=== PATIENT | male | born 1995 | race Caucasian/White ===

== ENCOUNTER 2023-08-06 16:00 | Emergency (ER) | payer SELFPAY ==
[2023-08-06 16:04] VITALS: BP 150/65; PULSE 60; RESP 18; TEMP 36.5; O2SAT 97; BMI 38.7
--- NOTE | 2023-08-06 16:18 | ED.GENADUL1 ---
HPI - General Adult General Chief complaint: Upper Respiratory Infection Stated complaint: Sore Throat Time Seen by Provider: 08/06/23 16:09 Source: patient Mode of arrival: walk-in Limitations: no limitations History of Present Illness HPI narrative: Patient is a 27-year-old male who presents to the emergency department because he states he was brushing his teeth earlier today intact and saw bright red blood in his emesis. He states he came to the emergency department out of curiosity because he is concerned that he may be internally bleeding. He has no other focal medical complaints. He has had no fevers, persistent vomiting or diarrhea. No cough or congestion. No medications taken prior to arrival. Related Data Allergies Allergy/AdvReac Type Severity Reaction Status Date / Time No Known Drug Allergies Allergy Verified 08/06/23 16:04 Review of Systems ROS Constitutional Denies: fever or chills Ears, nose, mouth, and throat Denies: nasal congestion Respiratory Denies: shortness of breath or cough Gastrointestinal Denies: nausea or vomiting Integumentary/Breast Denies: rash Neurological Denies: headache Hematologic/Lymphatic Denies: easy bruising PFSH PFSH Social History Smoking status: Current every day smoker Exam Narrative Exam Narrative: Gen.: Awake, alert, in no distress Head: Normocephalic, atraumatic ENT: Moist mucous membranes, minimal erythema and irritation noted in the posterior pharynx. No tonsillar edema or exudate. Uvula midline. No trismus or drooling. Clear speech. Respiratory: No respiratory distress, lungs clear bilaterally Cardio: Regular rate and rhythm Extremities: Moves extremities equally Psych: Normal mood and affect Neuro: No focal neuro deficit Skin: Warm, dry, intact Constitutional Vital Signs, click to edit/add: Last Vital Signs Temp 97.7 F 08/06/23 16:04 Pulse 60 08/06/23 16:04 Resp 18 08/06/23 16:04 BP 150/65 H 08/06/23 16:04 Pulse Ox 97 08/06/23 16:04 O2 Del Method Room Air 08/06/23 16:04 Course Vital Signs Vital signs: Vital Signs Temperature 97.7 F 08/06/23 16:04 Pulse Rate 60 08/06/23 16:04 Respiratory Rate 18 08/06/23 16:04 Blood Pressure 150/65 H 08/06/23 16:04 Pulse Oximetry 97 08/06/23 16:04 Oxygen Delivery Method Room Air 08/06/23 16:04 Temperature 97.7 F 08/06/23 16:04 Pulse Rate 60 08/06/23 16:04 Respiratory Rate 18 08/06/23 16:04 Blood Pressure 150/65 H 08/06/23 16:04 Pulse Oximetry 97 08/06/23 16:04 Oxygen Delivery Method Room Air 08/06/23 16:04 Medical Decision Making MDM Narrative Medical decision making narrative: Strep screen is negative, patient appears well-hydrated and nontoxic with stable vital signs. He has no active hematemesis in the Emergency Room, no persistent vomiting. No difficulty breathing or swallowing. Patient was given education and reassurance, follow-up with PCP and return to the Emergency Room if symptoms change or worsen. Hemodynamically stable at discharge. Medical Records Medical records reviewed: Yes I reviewed the patient's medical records Lab Data Lab results reviewed: Yes I reviewed the patient's lab results Labs: Lab Results 08/06/23 Range/Units 16:11 Streptococcus Screen Negative Discharge Plan Discharge Chief Complaint: Upper Respiratory Infection Clinical Impression: Hematemesis of unknown cause Patient Disposition: Home, Self-Care Time of Disposition Decision: 16:46 Condition: Good Instructions: Hematemesis (ED) Stand Alone Forms: Portal Instructions Referrals: Physician,Non-Staff, MD [Primary Care Provider] - 1 week Discharge Date/Time: 08/06/23 16:55
[2023-08-06 16:37] LABS: Internal Control Within Normal Limits; Strep A Antigen Screen Negative
== END 2023-08-06 16:55 | disposition home or self-care (01) ==
PROVIDERS: Physician Assistant; Emergency Provider Emergency Medicine
DX: K92.0 Hematemesis (principal); F17.210 Nicotine dependence, cigarettes, uncomplicated
CPT/HCPCS: 87070; 87880; 99283

== ENCOUNTER 2023-09-12 11:32 | Emergency (ER) | payer SELFPAY ==
[2023-09-12 11:37] VITALS: BP 141/63; PULSE 80; RESP 16; TEMP 37.1; O2SAT 98; BMI 36.8
--- NOTE | 2023-09-12 12:06 | ED.WOUNDLAC1 ---
HPI - Wound/Laceration General Chief Complaint: Wound/Laceration Stated Complaint: LACERATION TO RIGHT HAND Time Seen by Provider: 09/12/23 11:40 Source: patient Mode of arrival: walk-in Limitations: no limitations History of Present Illness HPI narrative: The patient was opening a pocket knife and he accidentally shut it against the outside of the right 5th finger, cutting the skin at the union of the distal and mid 5th phalanx. He initially tried to apply topical glue to the area but once it dried and he started using the right hand, the bending of the finger caused the adhesive to open up and he started bleeding again. His tetanus is up to date. Related Data Previous Rx's Medication Instructions Recorded cephalexin 500 mg capsule 500 mg PO QID 7 days #28 caps 09/12/23 Allergies Allergy/AdvReac Type Severity Reaction Status Date / Time No Known Drug Allergies Allergy Verified 08/06/23 16:04 [facility] Medical History (Updated 09/12/23 @ 12:14 by Asael Mcgregor) No active medical problems Social History Smoking status: Current every day smoker Exam Narrative Exam Narrative: Nurses notes and vital signs reviewed and patient is not hypoxic. afebrile General: Well-appearing and in no apparent distress. Skin: Warm, dry, no pallor noted. Cardiovascular: normal peripheral perfusion. Respiratory: No accessory muscle use or respiratory distress. Musculoskeletal: 5mm shallow linear laceration to the ulnar aspect of the right 5th finger along the union of the distal and mid phalange. All fingers right hand with normal ROM, no upper extremity edema/swelling Neurological: A&O x4. No cranial nerve dysfunction observed. No truncal ataxia. Moves all extremities. Sensation intact. Psychiatric: Cooperative and interactive. Normal mood and affect. Constitutional Vital Signs, click to edit/add: Last Vital Signs Temp 98.7 F 09/12/23 11:37 Pulse 80 09/12/23 11:37 Resp 16 09/12/23 11:37 BP 141/63 09/12/23 11:37 Pulse Ox 98 09/12/23 11:37 Course Vital Signs Vital signs: Vital Signs Temperature 98.7 F 09/12/23 11:37 Pulse Rate 80 09/12/23 11:37 Respiratory Rate 16 09/12/23 11:37 Blood Pressure 141/63 09/12/23 11:37 Pulse Oximetry 98 09/12/23 11:37 Temperature 98.7 F 09/12/23 11:37 Pulse Rate 80 09/12/23 11:37 Respiratory Rate 16 09/12/23 11:37 Blood Pressure 141/63 09/12/23 11:37 Pulse Oximetry 98 09/12/23 11:37 MDM - Wound/Laceration MDM Narrative Medical decision making narrative: Wound is not vigorously bleeding and is shallow. I applied wound adhesive to the area and once it was dry, the ED nurse applied a dry sterile dressing and then applied an alumifoam splint to the palmar surface of the right 5th finger to prevent movement. He will remove that and the dressing in 2 days and then apply a bandage. Discharge Plan Discharge Chief Complaint: Wound/Laceration Clinical Impression: Laceration Patient Disposition: Home, Self-Care Time of Disposition Decision: 12:14 Prescriptions / Home Meds: New cephalexin 500 mg capsule 500 mg PO QID 7 Days Qty: 28 0RF Instructions: Finger Laceration (ED) Stand Alone Forms: Portal Instructions Referrals: Physician,Non-Staff, MD [Primary Care Provider] - 1 week
== END 2023-09-12 12:32 | disposition home or self-care (01) ==
PROVIDERS: Emergency Provider Emergency Medicine
DX: S61.216A Laceration without foreign body of right little finger without damage to nail, initial encounter (principal); W26.0XXA Contact with knife, initial encounter; F17.210 Nicotine dependence, cigarettes, uncomplicated
CPT/HCPCS: 12001; 99283

== ENCOUNTER 2024-04-16 01:17 | Emergency (ER) | payer SELFPAY ==
[2024-04-16 01:21] VITALS: BP 168/99; PULSE 85; TEMP 37.1; O2SAT 98; BMI 37.9
--- NOTE | 2024-04-16 01:36 | ECG_ITS ---
[facility] Test Date: 2024-04-16 Pat Name: FLAVIO MURRAY Department: Room: - Gender: Male Transport Manager: : 1995 Requested By: [id number] Order Number: [id number] Reading MD: SANIYA VO Measurements Intervals [place] Rate: 66 P: 30 OK: 122 QRS: 44 QRSD: 86 T: 33 QT: 372 QTc: 386 Interpretive Statements 1100 Sinus rhythm 9110 normal ECG Compared to ECG 12/31/2022 12:28:54 T-wave abnormality no longer present Electronically Signed On 04-16-2024 6:56:28 EDT by SANIYA VO
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
[2024-04-16 01:41] LABS: Basophils Absolute Auto 0.1 10^3/uL (0.0-0.1); Basophils Percent Auto 0.8 % (0.2-2.0); Eosinophils Absolute Auto 0.1 10^3/uL (0.0-0.7); Eosinophils Percent Auto 1.8 % (0.9-7.0); Hematocrit 42.9 % (42.0-54.0); Hemoglobin 15.2 g/dL (14.0-18.0); Immature Granulocytes Abs Auto 0.03 10^3/uL (0.00-0.03); Immature Granulocytes Pct Auto 0.5 % (0.0-0.5); Lymphocytes Absolute Auto 1.4 10^3/uL (1.2-3.8); Lymphocytes Percent Auto 21.5 % (20.5-60.0); Mean Corpuscular HGB Conc 35.4 g/dL (29.9-35.2); Mean Corpuscular Hemoglobin 31.3 pg (25.9-34.0); Mean Corpuscular Volume 88.3 fL (80.0-94.0); Mean Platelet Volume 11.2 fL (9.5-13.5); Monocytes Absolute Auto 0.3 10^3/uL (0.3-0.8); Monocytes Percent Auto 4.8 % (1.7-12.0); Neutrophils Absolute Auto 4.7 10^3/uL (1.4-6.5); Neutrophils Percent Auto 70.6 % (43.0-75.0); Platelet Count 291 10^3/uL (150-450); Red Blood Count 4.86 10^6/uL (4.70-6.10); White Blood Count 6.6 10^3/uL (4.0-11.0)
[2024-04-16] MEDS: 0.9 % SODIUM CHLORIDE 1,000 ML 1000 ML IV (01:47)
[2024-04-16] MEDS: ONDANSETRON PF 4 MG/2 ML VIAL IV (01:48)
[2024-04-16 01:50] LABS: Anion Gap 12.3; BUN Creatinine Ratio 19.8; Carbon Dioxide 26.7 mmol/L (21.0-32.0); Chloride 101 mmol/L (98-107); Estimated GFR (African America >60 (>=60); Estimated GFR (Non-African Ame >60 (>=60); Glucose 100 mg/dL (74-106); Sodium 136 mmol/L (136-145)
--- OUTSIDE RECORDS SUMMARY | 2024-04-16 02:00 | XMS_ITS | CCD ---
Author Organization [facility] Care Team Providers Care Educational Administration Teacher Name Role Phone MATHEUS, DR ARACELI Le Admitting Unavailabl e REINECK, DR ARACELI Le Attending Unavailabl e REQUEST, DR MINAYA LISTED Primary Care Unavaila ble MATHEUS, DR ARACELI Le Consulting Unavailabl e RASPING DE LA GARZA Consulting Unavailable Results Test Name Value Interpretation Reference Range Facil ity CBC AUTO DIFFon 12-31-2022 BASO # 0.0 103/ul Normal 0.0-0.1 [facility] Comment on above: Performed By: #### C BC #### [facility] [address] [address] [address] Annemarie Solorio Basophils/100 WBC (Bld) 0.4 % Normal 0.2-2.0 [facility] Comment on above: Performed By: #### C BC #### [facility] [address] [address] [address] Annemarie Solorio EO # 0.1 103/ul Normal 0.0-0.7 [facility] Comment on above: Performed By: #### C BC #### [facility] [address] [address] [address] Annemarie Solorio Eosinophils/100 WBC (Bld) 1.0 % Normal 0.9-7.0 [facility] Comment on above: Performed By: #### C BC #### [facility] [address] [address] [address] Annemarie Solorio Erythrocyte distribution width (RBC) [Ratio] 12.2 % Normal 11.0-15.0 [facility] Comment on above: Performed By: #### C BC #### [facility] [address] [place] [address] Dr. Annemarie Solorio Hematocrit (Bld) [Volume fraction] 40.9 % Critically low 42.0-54.0 [facility] Comment on above: Performed By: #### C BC #### [facility] [address] [address] [address] Annemarie Solorio Hemoglobin (Bld) [Mass/Vol] 14.5 g/dL Normal 14.0-18.0 [facility] Comment on above: Performed By: #### C BC #### [facility] [address] [place] [address] Dr. Annemarie Solorio IG # 0.02 10e3/ul Normal 0.00-0.03 [facility] Comment on above: Performed By: #### C BC #### [facility] [address] [place] [address] Dr. Annemarie Solorio IG % 0.3 % Normal 0.0-0.5 [facility] Comment on above: Performed By: #### C BC #### [facility] [address] [place] [address] Dr. Annemarie Solorio LYMPH # 1.0 103/ul Critically low 1.2-3.8 [facility] Comment on above: Performed By: #### C BC #### [facility] [address] [place] [address] Dr. Annemarie Solorio Lymphocytes/100 WBC (Bld) 14.4 % Critically low 20.5-60.0 [facility] Comment on above: Performed By: #### C BC #### [facility] [address] [place] [address] Dr. Annemarie Solorio MANUAL DIFF REQ NO Normal [facility] Comment on above: Performed By: #### C BC #### [facility] [address] [place] [address] Dr. Annemarie Solorio MCH (RBC) [Entitic mass] 30.1 pg Normal 25.9-34.0 [facility] Comment on above: Performed By: #### C BC #### [facility] [address] [place] [address] Dr. Annemarie Solorio MCHC (RBC) [Mass/Vol] 35.5 g/dL Critically high 29.9-35.2 [facility] Comment on above: Performed By: #### C BC #### [facility] [address] [address] [address] Annemarie Solorio MCV (RBC) [Entitic vol] 84.9 fL Normal 80.0-94.0 [facility] Comment on above: Performed By: #### C BC #### [facility] [address] [address] [address] Annemarie Solorio MONO # 0.3 103/ul Normal 0.3-0.8 [facility] Comment on above: Performed By: #### C BC #### [facility] [address] [address] [address] Annemarie Solorio Monocytes/100 WBC (Bld) 4.8 % Normal 1.7-12.0 [facility] Comment on above: Performed By: #### C BC #### [facility] [address] [address] [address] Annemarie Solorio NEUT # 5.6 103/ul Normal 1.4-6.5 [facility] Comment on above: Performed By: #### C BC #### [facility] [address] [address] [address] Annemarie Solorio Neutrophils/100 WBC (Bld) 79.1 % Critically high 43.0-75.0 [facility] Comment on above: Performed By: #### C BC #### [facility] [address] [address] [address] Annemarie Solorio Platelet mean volume (Bld) [Entitic vol] 11.2 fL Normal 9.5-13.5 [facility] Comment on above: Performed By: #### C BC #### [facility] [address] [address] [address] Annemarie Solorio PLT 267 103/ul Normal 150-450 [facility] Comment on above: Performed By: #### C BC #### [facility] [address] [address] [address] Annemarie Solorio RBC 4.82 106/ul Normal 4.70-6.10 [facility] Comment on above: Performed By: #### C BC #### [facility] [address] [address] [address] Annemarie Solorio WBC 7.1 103/ul Normal 4.0-11.0 [facility] Comment on above: Performed By: #### C BC #### [facility] [address] [address] [address] Annemarie Solorio POINT OF CARE GLUCOSEon 12-16 Glucose [Mass/Vol] 123 mg/dL Critically high 74-[address] [facility] Comment on above: Performed By: #### P OCGLUC #### [facility] [address] [address] [address] Annemarie Solorio PROF CHEM 8 (BAS METB)on Anion gap [Moles/Vol] 15.7 mmol/L Normal [facility] Comment on above: Performed By: #### H STROPN, BMP #### [facility] [address] [place] [address] Dr. Annemarie Solorio Calcium [Mass/Vol] 9.2 mg/dL Normal 8.5-10.1 [facility] Comment on above: Performed By: #### H STROPN, BMP #### [facility] [address] [place] [address] Dr. Annemarie Solorio Chloride [Moles/Vol] 107 mmol/L Normal 98-107 [facility] Comment on above: Performed By: #### H STROPN, BMP #### [facility] [address] [place] [address] Dr. Annemarie Solorio CO2 [Moles/Vol] 24.3 mmol/L Normal 21.0-32.0 [facility] Comment on above: Performed By: #### H STROPN, BMP #### [facility] [address] [place] [address] Dr. Annemarie Solorio Creatinine [Mass/Vol] 0.98 mg/dL Normal 0.70-1.30 [facility] Comment on above: Performed By: #### H STROPN, BMP #### [facility] [address] [place] [address] Dr. Annemarie Solorio EGFR-AF [place] >60 Normal >=60 [facility] Comment on above: Performed By: #### H STROPN, BMP #### [facility] [address] [address] [address] Annemarie Solorio EGFR-NON AF [place] >60 Normal >=60 [facility] Comment on above: Performed By: #### H STROPN, BMP #### [facility] [address] [address] [address] Annemarie Solorio Glucose [Mass/Vol] 108 mg/dL Critically high 74-106 [facility] Comment on above: Performed By: #### H STROPN, BMP #### [facility] [address] [address] [address] Annemarie Solorio Potassium [Moles/Vol] 4.0 mmol/L Normal 3.5-5.1 [facility] Comment on above: Performed By: #### H STROPN, BMP #### [facility] [address] [place] [address] Dr. Annemarie Solorio Sodium [Moles/Vol] 143 mmol/L Normal 136-145 [facility] Comment on above: Performed By: #### H STROPN, BMP #### [facility] [address] [address] [address] Annemarie Solorio Urea nitrogen [Mass/Vol] 18.0 mg/dL Normal 7.0-18.0 [facility] Comment on above: Performed By: #### H STROPN, BMP #### [facility] [address] [place] [address] Dr. Annemarie Solorio Urea nitrogen/Creatinine [Mass ratio] 18.4 mg/mg Normal [facility] Comment on above: Performed By: #### H STROPN, BMP #### [facility] [address] [place] [address] Dr. Annemarie Solorio TROPONIN, HIGH SENSITIVITYon 12-31-2022 HSTROP 6.5 pg/mL Normal 4.0-76.1 [facility] Comment on above: Result Comment: CUT- OFF POINTS HAVE BEEN ESTABLISHED BASED ON THE FOURTH UNIVERSAL DEFINITIONS OF MYOCARDIAL INFARCTION. THE UPPER REFERENCE LIMIT (URL) OF TROPONIN, DEFINED THE 99TH PERCENTILE OF cTnI DISTRIBUTION IN A REFERENCE POPULATION, HAS BEEN CONFIRMED THE DECISION THRESHOLD FOR CA DIAGNOSIS. Performed By: #### H STRO, [facility] #### [facility] [id number] Annemarie Solorio XR CHEST 1 Von 12-31-2022 XR CHEST 1 V EXAM: XR CHEST 1 V HISTORY: CHEST PAIN, UNSPECIFIED COMPARISON: None. TECHNIQUE: Chest X-ray AP, 1 view FINDINGS: Support devices: None. Lungs/pleura: No consolidation, effusion, or pneumothorax. Heart and mediastinum: Normal contours. Bones: No acute abnormality identified. Impression: No radiographic evidence of acute cardiopulmonary process. Electronically authenticated by: PING GREGORY Date: 2022-12-31 14:13 Normal [facility] Encounters Encounter Date Encounter Type Care Provider Facility Start: 12-31-2022 End: 12-31-[address] ARACELI JARVIS Facility:[facility] Payers Date Payer Category Payer Unknown [id number] 1960 Self-pay [id number] Summary Purpose Family History No Family History Records Found Advance Directives No Advanced Directives Records Found Additional Source Comments (unrecognized sect ion and content) No Status Records Found INFORMATION SOURCE (unrecogn ized section and content) DATE CREATED AUTHOR 01/01/[address] [facility] FOR RECORDS PERTAINING TO PATIENTS WHO ARE OR HAVE BEEN ENROLLED IN A CHEMICAL DEPENDENCY/SUBSTANCEABUSE PROGRAM, SOME INFORMATION MAY BE OMITTED. This clinical summary was aggregated from multiple sources. Caution should be exercised in using it in the provision of clinical care. This summary normalizes information from multiple sources, and as a consequence, information in this document may materially change the coding, format and clinical context of patient data. In addition, data may be omitted in some cases. CLINICAL DECISIONS SHOULD BE BASED ON THE PRIMARY CLINICAL RECORDS. [employer] provides no warranty or guarantee of the accuracy or completeness of information in this document.
== END 2024-04-16 02:46 | disposition home or self-care (01) ==
PROVIDERS: Emergency Provider Emergency Medicine
DX: R42 Dizziness and giddiness (principal); F17.210 Nicotine dependence, cigarettes, uncomplicated
CPT/HCPCS: 36415; 80048; 85025; 93005; 96361; 96374; 99284; J2405

== ENCOUNTER 2024-09-14 23:07 | Emergency (ER) | payer SELFPAY ==
--- OUTSIDE RECORDS SUMMARY | 2024-09-14 23:11 | XMS_ITS | CCD ---
Author Organization [facility] Care Team Providers Care Hide Sorter Name Role Phone MATHEUS, DR ARACELI Le Admitting Unavailabl e REINECK, DR ARACELI Le Attending Unavailabl e REQUEST, DR MINAYA LISTED Primary Care Unavaila ble MATHEUS, DR ARACELI Le Consulting Unavailabl e RASPING DE LA GARZA Consulting Unavailable Results Test Name Value Interpretation Reference Range Facil ity CBC AUTO DIFFon 12-31-2022 BASO # 0.0 103/ul Normal 0.0-0.1 [facility] Comment on above: Performed By: #### C BC #### [facility] [address] [address] [address] Annemarie Solorio Basophils/100 WBC (Bld) 0.4 % Normal 0.2-2.0 [facility] Comment on above: Performed By: #### C BC #### [facility] [address] [address] [address] Annemarie Solorio EO # 0.1 103/ul Normal 0.0-0.7 [facility] Comment on above: Performed By: #### C BC #### [facility] [address] [address] [address] Annemarie Solorio Eosinophils/100 WBC (Bld) 1.0 % Normal 0.9-7.0 [facility] Comment on above: Performed By: #### C BC #### [facility] [address] [address] [address] Annemarie Solorio Erythrocyte distribution width (RBC) [Ratio] 12.2 % Normal 11.0-15.0 [facility] Comment on above: Performed By: #### C BC #### [facility] [address] [place] [address] Dr. Annemarie Solorio Hematocrit (Bld) [Volume fraction] 40.9 % Critically low 42.0-54.0 [facility] Comment on above: Performed By: #### C BC #### [facility] [address] [address] [address] Annemarie Solorio Hemoglobin (Bld) [Mass/Vol] 14.5 g/dL Normal 14.0-18.0 [facility] Comment on above: Performed By: #### C BC #### [facility] [address] [place] [address] Dr. Annemarie Solorio IG # 0.02 10e3/ul Normal 0.00-0.03 [facility] Comment on above: Performed By: #### C BC #### [facility] [address] [place] [address] Dr. Annemarie Solorio IG % 0.3 % Normal 0.0-0.5 [facility] Comment on above: Performed By: #### C BC #### [facility] [address] [place] [address] Dr. Annemarie Solorio LYMPH # 1.0 103/ul Critically low 1.2-3.8 [facility] Comment on above: Performed By: #### C BC #### [facility] [address] [place] [address] Dr. Annemarie Solorio Lymphocytes/100 WBC (Bld) 14.4 % Critically low 20.5-60.0 [facility] Comment on above: Performed By: #### C BC #### [facility] [address] [place] [address] Dr. Annemarie Solorio MANUAL DIFF REQ NO Normal [facility] Comment on above: Performed By: #### C BC #### [facility] [address] [place] [address] Dr. Annemarie Solorio MCH (RBC) [Entitic mass] 30.1 pg Normal 25.9-34.0 [facility] Comment on above: Performed By: #### C BC #### [facility] [address] [place] [address] Dr. Annemarie Solorio MCHC (RBC) [Mass/Vol] 35.5 g/dL Critically high 29.9-35.2 [facility] Comment on above: Performed By: #### C BC #### [facility] [address] [address] [address] Annemarie Solorio MCV (RBC) [Entitic vol] 84.9 fL Normal 80.0-94.0 [facility] Comment on above: Performed By: #### C BC #### [facility] [address] [address] [address] Annemarie Soloiro MONO # 0.3 103/ul Normal 0.3-0.8 [facility] Comment on above: Performed By: #### C BC #### [facility] [address] [address] [address] Annemarie Solorio Monocytes/100 WBC (Bld) 4.8 % Normal 1.7-12.0 [facility] Comment on above: Performed By: #### C BC #### [facility] [address] [address] [address] Annemarie Solorio NEUT # 5.6 103/ul Normal 1.4-6.5 [facility] Comment on above: Performed By: #### C BC #### [facility] [address] [address] [address] Annemarie Solorio Neutrophils/100 WBC (Bld) 79.1 % Critically high 43.0-75.0 [facility] Comment on above: Performed By: #### C BC #### [facility] [address] [address] [address] Annemarie Solorio Platelet mean volume (Bld) [Entitic vol] 11.2 fL Normal 9.5-13.5 [facility] Comment on above: Performed By: #### C BC #### [facility] [address] [address] [address] Annemarie Solorio PLT 267 103/ul Normal 150-450 [facility] Comment on above: Performed By: #### C BC #### [facility] [address] [address] [address] Annemarie Solorio RBC 4.82 106/ul Normal 4.70-6.10 [facility] Comment on above: Performed By: #### C BC #### [facility] [address] [address] [address] Annemarie Solorio WBC 7.1 103/ul Normal 4.0-11.0 [facility] Comment on above: Performed By: #### C BC #### [facility] [address] [address] [address] Annemarie Solorio POINT OF CARE GLUCOSEon 12-16 Glucose [Mass/Vol] 123 mg/dL Critically high 74-106 T [facility] Comment on above: Performed By: #### P OCGLUC #### [facility] [address] [address] [address] Annemarie Solorio PROF CHEM 8 (BAS METB)on Anion gap [Moles/Vol] 15.7 mmol/L Normal [facility] Comment on above: Performed By: #### H STROPN, BMP #### [facility] [address] [place] [address] Dr. Annemarie Solorio Calcium [Mass/Vol] 9.2 mg/dL Normal 8.5-10.1 [facility] Comment on above: Performed By: #### H STROPN, BMP #### [facility] [address] [place] [address] Dr. Annemarie Solorio Chloride [Moles/Vol] 107 mmol/L Normal 98-107 [facility] Comment on above: Performed By: #### H STROPN, BMP #### [facility] [address] [place] [address] Dr. Annemarie Solorio CO2 [Moles/Vol] 24.3 mmol/L Normal 21.0-32.0 [facility] Comment on above: Performed By: #### H STROPN, BMP #### [facility] [address] [place] [address] Dr. Annemarie Solorio Creatinine [Mass/Vol] 0.98 mg/dL Normal 0.70-1.30 [facility] Comment on above: Performed By: #### H STROPN, BMP #### [facility] [address] [place] [address] Dr. Annemarie Solorio EGFR-AF RWANDAN >60 Normal >=60 [facility] Comment on above: Performed By: #### H STROPN, BMP #### [facility] [address] [address] [address] Annemarie Solorio EGFR-NON AF RWANDAN >60 Normal >=60 [facility] Comment on above: Performed By: #### H STROPN, BMP #### [facility] [address] [address] [address] Annemarie Solorio Glucose [Mass/Vol] 108 mg/dL Critically high 74-106 [facility] Comment on above: Performed By: #### H STROPN, BMP #### [facility] [address] [address] [address] Annemarie Solorio Potassium [Moles/Vol] 4.0 mmol/L Normal 3.5-5.1 [facility] Comment on above: Performed By: #### H STROPN, BMP #### [facility] [address] [place] [address] Dr. Annemarie Solorio Sodium [Moles/Vol] 143 mmol/L Normal 136-145 [facility] Comment on above: Performed By: #### H STROPN, BMP #### [facility] [address] [address] [address] Annemarie Solorio Urea nitrogen [Mass/Vol] 18.0 mg/dL Normal 7.0-18.0 [facility] Comment on above: Performed By: #### H STROPN, BMP #### [facility] [address] [place] [address] Dr. Annemarie Solorio Urea nitrogen/Creatinine [Mass ratio] 18.4 mg/mg Normal [facility] Comment on above: Performed By: #### H STROPN, BMP #### [facility] [address] [place] [address] Dr. Annemarie Solorio TROPONIN, HIGH SENSITIVITYon 12-31-2022 HSTROP 6.5 pg/mL Normal 4.0-76.1 [facility] Comment on above: Result Comment: CUT- OFF POINTS HAVE BEEN ESTABLISHED BASED ON THE FOURTH UNIVERSAL DEFINITIONS OF MYOCARDIAL INFARCTION. THE UPPER REFERENCE LIMIT (URL) OF TROPONIN, DEFINED THE 99TH PERCENTILE OF cTnI DISTRIBUTION IN A REFERENCE POPULATION, HAS BEEN CONFIRMED THE DECISION THRESHOLD FOR NM DIAGNOSIS. Performed By: #### H STRO, [place] #### [facility] [id number] Annemarie Solorio XR CHEST 1 Von [...] by: PING GREGORY Date: 2022-12-31 14:13 Normal [facility] Encounters Encounter Date Encounter Type Care Provider Facility Start: 12-31-2022 End: 12-31-[address] ARACELI JARVIS Facility:[facility] Payers Date Payer Category Payer Unknown [id number] 1960 Self-pay [id number] Summary Purpose Family History No Family History Records Found Advance Directives No Advanced Directives Records Found Additional Source Comments (unrecognized sect ion and content) No Status Records Found INFORMATION SOURCE (unrecogn ized section and content) DATE CREATED AUTHOR 01/01/2023 [facility] FOR RECORDS PERTAINING TO PATIENTS WHO ARE [...] BE BASED ON THE PRIMARY CLINICAL RECORDS. [employer] provides no warranty or guarantee of the accuracy or completeness of information in this document.
[2024-09-14 23:22] VITALS: BP 133/62; PULSE 102; TEMP 37; O2SAT 97; BMI 37.9
--- NOTE | 2024-09-14 23:34 | ED_ITS ---
HPI - Nausea/Vomiting/Diarrhea General Chief complaint: Nausea/Vomiting/Diarrhea Stated complaint: VOMITING Time Seen by Provider: 09/14/24 23:17 Source: patient Mode of arrival: walk-in Limitations: no limitations History of Present Illness HPI Narrative: 28-year-old male presents for nausea vomiting and diarrhea. It started about 5:00 this morning. He also complains of allover body pain from his rheumatoid arthritis which seems to only flareup when he is sick. He has lived in this area for a year and a half, moved here from [facility] and he does not have a family doctor. He has not had fever or hematemesis or hematochezia. Related Data Previous Rx's ?Medication ?Instructions ?Recorded acetaminophen 300 mg-codeine 30 mg 1 tab PO Q6H PRN pain 3 days #10 09/15/24 tablet tabs ondansetron 4 mg disintegrating 4 mg PO Q6H PRN nausea and 09/15/24 tablet vomiting #20 tabs prednisone 10 mg tablet See Rx Instructions .Route 09/15/24 .COMPLEX #30 tabs Allergies Allergy/AdvReac Type Severity Reaction Status Date / Time No Known Drug Allergies Allergy Verified 09/14/24 23:27 Review of Systems ROS Narrative A ten point review of systems is negative except as noted above. [facility] Medical History (Updated 09/15/24 @ 01:33 by Anthony Steiner MD) No active medical problems Social History Smoking status: Current every day smoker Little interest or pleasure in doing things: not at all Feeling down, depressed, or hopeless: not at all Exam Narrative Exam Narrative: Nurses note and vital signs reviewed and patient is not hypoxic. General: The patient appears in no apparent distress. Skin: Warm, dry, no pallor noted. There is no rash noted. Head: Normocephalic, atraumatic Eye: Normal conjunctiva, no drainage Ears, Nose, Mouth, and Throat: oral mucosa is moist. Nares patent. Cardiovascular: Regular Rate and Rhythm Respiratory: Patient is in no distress, no accessory muscle use, lungs are clear to auscultation, no wheezing, rales or rhonchi Back: non-tender GI: Soft and nontender and nondistended Musculoskeletal: The patient has no evidence of calf tenderness, no pitting edema, symmetrical pulses noted bilaterally Neurological: A&O, normal speech Psychiatric: Cooperative Constitutional Vital Signs, click to edit/add: Last Vital Signs Temp 98.6 F 09/14/24 23:22 Pulse 102 H 09/14/24 23:22 Resp 16 09/14/24 23:22 BP 133/62 09/14/24 23:22 Pulse Ox 97 09/14/24 23:22 O2 Del Method Room Air 09/14/24 23:22 Course Vital Signs Vital signs: Vital Signs Temperature 98.6 F 09/14/24 23:22 Pulse Rate 102 H 09/14/24 23:22 Respiratory Rate 16 09/14/24 23:22 Blood Pressure 133/62 09/14/24 23:22 Pulse Oximetry 97 09/14/24 23:22 Oxygen Delivery Method Room Air 09/14/24 23:22 Temperature 98.6 F 09/14/24 23:22 Pulse Rate 102 H 09/14/24 23:22 Respiratory Rate 16 09/14/24 23:22 Blood Pressure 133/62 09/14/24 23:22 Pulse Oximetry 97 09/14/24 23:22 Oxygen Delivery Method Room Air 09/14/24 23:22 MDM - Nausea/Vomiting/Diarrhea MDM Narrative Medical decision making narrative: The patient is feeling improved with the medications that were given and he is discharged home with a prescription for prednisone and Zofran and Tylenol 3, 10 tablets. He was also given a list of family physicians. Treatment diagnosis and follow-up were discussed with the patient. Differential Diagnosis Differential diagnosis: Likely food poisoning, gastroenteritis and dehydration Lab Data Attestation: I reviewed the patient's lab results. Labs: Lab Results 09/14/24 Range/Units 23:49 WBC 9.2 (4.0-11.0) 10^3/uL RBC 4.57 L (4.70-6.10) 10^6/uL Hgb 14.0 (14.0-18.0) g/dL Hct 40.6 L (42.0-54.0) % MCV 88.8 (80.0-94.0) fL MCH 30.6 (25.9-34.0) pg MCHC 34.5 (29.9-35.2) g/dL RDW 12.0 (11.0-15.0) % Plt Count 212 (150-450) 10^3/uL MPV 11.3 (9.5-13.5) fL Neut % (Auto) 82.6 H (43.0-75.0) % Lymph % (Auto) 10.1 L (20.5-60.0) % [place] % (Auto) 5.0 (1.7-12.0) % Eos % (Auto) 1.7 (0.9-7.0) % Baso % (Auto) 0.3 (0.2-2.0) % Neut # (Auto) 7.6 H (1.4-6.5) 10^3/uL Lymph # (Auto) 0.9 L (1.2-3.8) 10^3/uL [place] # (Auto) 0.5 (0.3-0.8) 10^3/uL Eos # (Auto) 0.2 (0.0-0.7) 10^3/uL Baso # (Auto) 0.0 (0.0-0.1) 10^3/uL Abs Immat Gran (auto) 0.03 (0.00-0.03) 10^3/uL Imm/Tot Granulo (auto) 0.3 (0.0-0.5) % Sodium 139 (136-145) mmol/L Potassium 3.7 (3.5-5.1) mmol/L Chloride 104 (98-107) mmol/L Carbon Dioxide 27.1 (21.0-32.0) mmol/L Anion Gap 11.6 BUN 17.0 (7.0-18.0) mg/dL Creatinine 1.05 (0.70-1.30) mg/dL Est GFR ( Amer) >60 (>=60 mL/min/1.73m^2) Est GFR (Non-Af Amer) >60 (>=60 mL/min/1.73m^2) BUN/Creatinine Ratio 16.2 Glucose 111 H (74-106) mg/dL Calcium 8.4 L (8.5-10.1) mg/dL Discharge Plan Discharge Chief Complaint: Nausea/Vomiting/Diarrhea Clinical Impression: Nausea, vomiting and diarrhea, Joint pain Patient Disposition: Home, Self-Care Time of Disposition Decision: 01:33 Condition: Good Mode of Transportation: Private Vehicle Prescriptions / Home Meds: New prednisone 10 mg tablet See Rx Instructions .ROUTE .COMPLEX Qty: 30 0RF Rx Instructions: 4 by mouth daily for three days then 3 by mouth daily for three days then 2 by mouth daily for three days then 1 by mouth daily for three days acetaminophen-codeine 300-30 mg tablet 1 tab PO Q6H PRN (Reason: pain) 3 Days Qty: 10 0RF ondansetron 4 mg tablet,disintegrating 4 mg PO Q6H PRN (Reason: nausea and vomiting) Qty: 20 0RF Print Language: Indian Instructions: Acute Nausea and Vomiting (ED) Additional Instructions: See list of family physicians Referrals: Physician,Non-Staff, MD [Primary Care Provider] - 1 week
[2024-09-14 23:56] LABS: Basophils Percent Auto 0.3 % (0.2-2.0); Eosinophils Absolute Auto 0.2 10^3/uL (0.0-0.7); Eosinophils Percent Auto 1.7 % (0.9-7.0); Hematocrit 40.6 % (42.0-54.0); Immature Granulocytes Abs Auto 0.03 10^3/uL (0.00-0.03); Immature Granulocytes Pct Auto 0.3 % (0.0-0.5); Lymphocytes Absolute Auto 0.9 10^3/uL (1.2-3.8); Lymphocytes Percent Auto 10.1 % (20.5-60.0); Mean Corpuscular HGB Conc 34.5 g/dL (29.9-35.2); Mean Corpuscular Hemoglobin 30.6 pg (25.9-34.0); Mean Corpuscular Volume 88.8 fL (80.0-94.0); Mean Platelet Volume 11.3 fL (9.5-13.5); Monocytes Absolute Auto 0.5 10^3/uL (0.3-0.8); Neutrophils Absolute Auto 7.6 10^3/uL (1.4-6.5); Neutrophils Percent Auto 82.6 % (43.0-75.0); Platelet Count 212 10^3/uL (150-450); Red Blood Count 4.57 10^6/uL (4.70-6.10); White Blood Count 9.2 10^3/uL (4.0-11.0)
[2024-09-15] MEDS: ONDANSETRON PF 4 MG/2 ML VIAL IV (00:02)
[2024-09-15] MEDS: KETOROLAC TROMETHAMINE 30 MG/ML VIAL IVP (00:02)
[2024-09-15] MEDS: 0.9 % SODIUM CHLORIDE 1,000 ML 1000 ML IV (00:03)
[2024-09-15] MEDS: METHYLPREDNISOLONE SOD SUCC PF 125 MG/2 ML VIAL IVP (00:03)
[2024-09-15 00:05] LABS: Anion Gap 11.6; BUN Creatinine Ratio 16.2; Calcium 8.4 mg/dL (8.5-10.1); Carbon Dioxide 27.1 mmol/L (21.0-32.0); Chloride 104 mmol/L (98-107); Estimated GFR (African America >60 (>=60 mL/min/1.73m^2); Estimated GFR (Non-African Ame >60 (>=60 mL/min/1.73m^2); Glucose 111 mg/dL (74-106); Potassium 3.7 mmol/L (3.5-5.1); Sodium 139 mmol/L (136-145)
[2024-09-15] MEDS: MORPHINE SULFATE 4 MG/ML VIAL IV (01:26)
[2024-09-15 01:58] VITALS: BP 133/68; PULSE 78; TEMP 36.7; O2SAT 98
== END 2024-09-15 02:07 | disposition home or self-care (01) ==
PROVIDERS: Emergency Provider Emergency Medicine
DX: R11.2 Nausea with vomiting, unspecified (principal); R19.7 Diarrhea, unspecified; M06.9 Rheumatoid arthritis, unspecified; F17.200 Nicotine dependence, unspecified, uncomplicated
CPT/HCPCS: 36415; 80048; 85025; 96361; 96374; 96375; 99284; J1885; J2270; J2405; J2919

== ENCOUNTER 2024-09-15 02:54 | Emergency (ER) | payer SELFPAY ==
[2024-09-15 02:57] VITALS: BP 152/86; PULSE 78; TEMP 36.7; O2SAT 100; BMI 43.9
--- NOTE | 2024-09-15 02:57 | ECG_ITS ---
[facility] Test Date: 2024-09-15 Pat Name: FLAVIO MURRAY Department: Room: - Gender: Male Fisher Hand Line: : 1995 Requested By: NICHOLE CORTEZ Order Number: [id number] Reading MD: SANIYA VO Measurements Intervals [place] Rate: 76 P: 23 RI: 120 QRS: 49 QRSD: 94 T: 41 QT: 366 QTc: 397 Interpretive Statements 1100 Sinus rhythm 1102 Sinus arrhythmia 9110 normal ECG Compared to ECG 04/16/2024 01:52:04 No significant changes Electronically Signed On 09-16-2024 14:55:38 EST by SANIYA VO
--- NOTE | 2024-09-15 02:58 | XR_ITS ---
The [address] [address] Patient Name: FLAVIO MURRAY MRN: [id number] date: 1995 Sex: M Assigned Patient Location: ED.MAIN Current Patient Location: ED.MAIN Accession/Order Number: [id number] Exam Date: 09/15/2024 03:10 Report Date: 09/15/2024 03:46 At the request of: RADHA CAMEJO Procedure: XR chest 1V SINGLE VIEW CHEST: 09/15/2024 3:10 AM EST CLINICAL HISTORY:CP COMPARISONS: None. TECHNIQUE: Single frontal view of the chest, utilizing portable technique. Portable radiography should be considered a technically compromised study. Strongly consider dedicated PA and lateral chest radiographs, as clinically indicated. FINDINGS: LINES AND TUBES: Cardiac monitoring leads and wires overlie the patient. CARDIAC SILHOUETTE: Cardiac chambers are mildly enlarged. MEDIASTINAL AND HILAR CONTOUR: Within normal limits. PULMONARY PARENCHYMA AND PLEURA: No consolidation, edema, effusion, or pneumothorax. OSSEOUS STRUCTURES:Nothing significant. OTHER COMMENTS:None. XR/XR chest 1V IMPRESSION: Clear lungs. Mild cardiac enlargement versus accentuation from technique and body habitus. This report was generated with voice recognition software. Effort has been made to ensure accuracy of this report, however, occasional wording errors may persist. Please contact our office with any questions. Electronically authenticated by: FATOU FALCON Date: 09/15/2024 03:46
--- NOTE | 2024-09-15 03:08 | ED.GENADUL1 ---
HPI HPI - General Adult General Chief complaint: Anxiety Stated complaint: CHEST PAIN Time Seen by Provider: 09/15/24 02:57 Source: patient Mode of arrival: ambulance Limitations: no limitations History of Present Illness HPI narrative: 28-year-old male presents for chest pain. It is in the middle part of his chest. He was seen here earlier tonight for joint pain and nausea vomiting and diarrhea. When he got home about 10 minutes later his pain in his chest started. No trauma or fever. He has a history of anxiety. He does not complain of pain radiating and he does not complain to me of shortness of breath or back pain. Related Data Previous Rx's ?Medication ?Instructions ?Recorded acetaminophen 300 mg-codeine 30 mg 1 tab PO Q6H PRN pain 3 days #10 09/15/24 tablet tabs ondansetron 4 mg disintegrating 4 mg PO Q6H PRN nausea and 09/15/24 tablet vomiting #20 tabs prednisone 10 mg tablet See Rx Instructions .Route 09/15/24 .COMPLEX #30 tabs Allergies Allergy/AdvReac Type Severity Reaction Status Date / Time No Known Drug Allergies Allergy Verified 09/15/24 02:58 Opioid HPI Opioid Management Most Recent Opioid Data: Last Pain Scale 8 09/15/24 01:26 09/15/24 Review of Systems ROS Narrative A ten point review of systems is negative except as noted above. [facility] Medical History (Updated 09/15/24 @ 03:53 by Anthony Steiner MD) No active medical problems Social History Smoking status: Current every day smoker Little interest or pleasure in doing things: not at all Feeling down, depressed, or hopeless: not at all Exam Narrative Exam Narrative: Nurses note and vital signs reviewed and patient is not hypoxic. General: The patient appears well and in no apparent distress. Patient is resting comfortably on cart. Skin: Warm, dry, no pallor noted. There is no rash noted. Head: Normocephalic, atraumatic Eye: Normal conjunctiva, no drainage Ears, Nose, Mouth, and Throat: oral mucosa is moist. Nares patent. Cardiovascular: Regular Rate and Rhythm Respiratory: Patient is in no distress, no accessory muscle use, lungs are clear to auscultation, no wheezing, rales or rhonchi Back: non-tender GI: Soft and nontender Musculoskeletal: The patient has no evidence of calf tenderness, no pitting edema, symmetrical pulses noted bilaterally Neurological: A&O, normal speech Psychiatric: Cooperative Constitutional Vital Signs, click to edit/add: Last Vital Signs Temp 98.1 F 09/15/24 02:57 Pulse 77 09/15/24 03:33 Resp 20 09/15/24 03:33 BP 168/73 H 09/15/24 03:33 Pulse Ox 98 09/15/24 03:33 O2 Del Method Room Air 09/15/24 02:57 Course Vital Signs Vital signs: Vital Signs Temperature 98.1 F 09/15/24 02:57 Pulse Rate 78 09/15/24 02:57 Respiratory Rate 18 09/15/24 02:57 Blood Pressure 152/86 H 09/15/24 02:57 Pulse Oximetry 100 09/15/24 02:57 Oxygen Delivery Method Room Air 09/15/24 02:57 Temperature 98.1 F 09/15/24 02:57 Pulse Rate 77 09/15/24 03:33 Respiratory Rate 20 09/15/24 03:33 Blood Pressure 168/73 H 09/15/24 03:33 Pulse Oximetry 98 09/15/24 03:33 Oxygen Delivery Method Room Air 09/15/24 02:57 Medical Decision Making [facility] Narrative Medical decision making narrative: Chest x-ray and EKG showed no acute findings. He was given IM Ativan and feels improved and is able to be discharged home. Treatment diagnosis and follow-up were discussed with the patient Differential Diagnosis Differential Diagnosis: Chest pain, pneumothorax, anxiety Imaging Data Chest x-ray: Radiologist's impression: ITS Impressions Chest X-Ray 09/15/24 02:58 IMPRESSION: Clear lungs. Mild cardiac enlargement versus accentuation from technique and body habitus. This report was generated with voice recognition software. Effort has been made to ensure accuracy of this report, however, occasional wording errors may persist. Please contact our office with any questions. Electronically authenticated by: FATOU FALCON Date: 09/15/2024 03:46 ECG Data Attestation: I personally reviewed and interpreted this ECG as follows: (EKG on my interpretation shows normal sinus rhythm without acute change and a rate of 76) Discharge Plan Discharge Chief Complaint: Anxiety Clinical Impression: Acute anxiety Patient Disposition: Home, Self-Care Time of Disposition Decision: 03:53 Condition: Good Mode of Transportation: Private Vehicle Prescriptions / Home Meds: No Action prednisone 10 mg tablet See Rx Instructions .ROUTE .COMPLEX Qty: 30 0RF Rx Instructions: 4 by mouth daily for three days then 3 by mouth daily for three days then 2 by mouth daily for three days then 1 by mouth daily for three days acetaminophen-codeine 300-30 mg tablet 1 tab PO Q6H PRN (Reason: pain) 3 Days Qty: 10 0RF ondansetron 4 mg tablet,disintegrating 4 mg PO Q6H PRN (Reason: nausea and vomiting) Qty: 20 0RF Print Language: Italian Instructions: Anxiety (ED) Referrals: Physician,Non-Staff, MD [Primary Care Provider] - 1 week
--- NOTE | 2024-09-15 03:11 | PC.NURSE ---
this patient complains of can I have something for anxiety for my chest pain
--- OUTSIDE RECORDS SUMMARY | 2024-09-15 03:19 | XMS_ITS | CCD ---
Author Organization [facility] Care Team Providers Care Technical Sales Manager Name Role Phone MATHEUS, DR ARACELI Le Admitting Unavailabl e REINECK, DR ARACELI Le Attending Unavailabl e REQUEST, DR MINAYA LISTED Primary Care Unavaila ble MATHEUS, DR ARACELI Le Consulting Unavailabl e RASPING DE LA GARZA Consulting Unavailable Results Test Name Value Interpretation Reference Range Facil ity CBC AUTO DIFFon 12-31-2022 BASO # 0.0 103/ul Normal 0.0-0.1 [facility] Comment on above: Performed By: #### C BC #### [facility] [address] [address] [address] Annemarie Solorio Basophils/100 WBC (Bld) 0.4 % Normal 0.2-2.0 [facility] Comment on above: Performed By: #### C BC #### [facility] [address] [address] [address] Annemarie Solorio EO # 0.1 103/ul Normal 0.0-0.7 [facility] Comment on above: Performed By: #### C BC #### [facility] [address] [address] [address] Annemarie Solorio Eosinophils/100 WBC (Bld) 1.0 % Normal 0.9-7.0 [facility] Comment on above: Performed By: #### C BC #### [facility] [address] [address] [address] Annemarie Solorio Erythrocyte distribution width (RBC) [Ratio] 12.2 % Normal 11.0-15.0 [facility] Comment on above: Performed By: #### C BC #### [facility] [address] [place] [address] Dr. Annemarie Solorio Hematocrit (Bld) [Volume fraction] 40.9 % Critically low 42.0-54.0 [facility] Comment on above: Performed By: #### C BC #### [facility] [address] [address] [address] Annemarie Solorio Hemoglobin (Bld) [Mass/Vol] 14.5 g/dL Normal 14.0-18.0 [facility] Comment on above: Performed By: #### C BC #### [facility] [address] [place] [address] Dr. Annemarie Solorio IG # 0.02 10e3/ul Normal 0.00-0.03 [facility] Comment on above: Performed By: #### C BC #### [facility] [address] [place] [address] Dr. Annemarie Solorio IG % 0.3 % Normal 0.0-0.5 [facility] Comment on above: Performed By: #### C BC #### [facility] [address] [place] [address] Dr. Annemarie Solorio LYMPH # 1.0 103/ul Critically low 1.2-3.8 [facility] Comment on above: Performed By: #### C BC #### [facility] [address] [place] [address] Dr. Annemarie Solorio Lymphocytes/100 WBC (Bld) 14.4 % Critically low 20.5-60.0 [facility] Comment on above: Performed By: #### C BC #### [facility] [address] [place] [address] Dr. Annemarie Solroio MANUAL DIFF REQ NO Normal [facility] Comment on above: Performed By: #### C BC #### [facility] [address] [place] [address] Dr. Annemarie Solorio MCH (RBC) [Entitic mass] 30.1 pg Normal 25.9-34.0 [facility] Comment on above: Performed By: #### C BC #### [facility] [address] [place] [address] Dr. Annemarie Solorio MCHC (RBC) [Mass/Vol] 35.5 g/dL Critically high 29.9-35.2 [facility] Comment on above: Performed By: #### C BC #### [facility] [address] [address] [address] Annemarie Solorio MCV (RBC) [Entitic vol] 84.9 fL Normal 80.0-94.0 [facility] Comment on above: Performed By: #### C BC #### [facility] [address] [address] [address] Annemarie Solorio MONO # 0.3 103/ul Normal 0.3-0.8 [facility] Comment on above: Performed By: #### C BC #### [facility] [address] [address] [address] Annemarie Solorio Monocytes/100 WBC (Bld) 4.8 % Normal 1.7-12.0 [facility] Comment on above: Performed By: #### C BC #### [facility] [address] [address] [address] Annemarie Solorio NEUT # 5.6 103/ul Normal 1.4-6.5 [facility] Comment on above: Performed By: #### C BC #### [facility] [address] [address] [address] Annemarie Solorio Neutrophils/100 WBC (Bld) 79.1 % Critically high 43.0-75.0 [facility] Comment on above: Performed By: #### C BC #### [facility] [address] [address] [address] Annemarie Solorio Platelet mean volume (Bld) [Entitic vol] 11.2 fL Normal 9.5-13.5 [facility] Comment on above: Performed By: #### C BC #### [facility] [address] [address] [address] Annemarie Solorio PLT 267 103/ul Normal 150-450 [facility] Comment on above: Performed By: #### C BC #### [facility] [address] [address] [address] Annemarie Solorio RBC 4.82 106/ul Normal 4.70-6.10 [facility] Comment on above: Performed By: #### C BC #### [facility] [address] [address] [address] Annemarie Solorio WBC 7.1 103/ul Normal 4.0-11.0 [facility] Comment on above: Performed By: #### C BC #### [facility] [address] [address] [address] Annemarie Solorio POINT OF CARE GLUCOSEon 12-16 Glucose [Mass/Vol] 123 mg/dL Critically high 74-106 [facility] Comment on above: Performed By: #### P OCGLUC #### [facility] [address] [address] [address] Annemarie Solorio PROF CHEM 8 (BAS METB)on Anion gap [Moles/Vol] 15.7 mmol/L Normal [facility] Comment on above: Performed By: #### H STROPN, BMP #### [facility] [address] [place] [address] Dr. Annemarie Solorio Calcium [Mass/Vol] 9.2 mg/dL Normal 8.5-10.1 [facility] Comment on above: Performed By: #### H STROPN, BMP #### [facility] [address] [place] [address] Dr. Annemarie Solorio Chloride [Moles/Vol] 107 mmol/L Normal 98-107 [facility] Comment on above: Performed By: #### H STROPN, BMP #### [facility] [address] [place] [address] Dr. Annemarie Solorio CO2 [Moles/Vol] 24.3 mmol/L Normal 21.0-32.0 [facility] Comment on above: Performed By: #### H STROPN, BMP #### [facility] [address] [place] [address] Dr. Annemarie Solorio Creatinine [Mass/Vol] 0.98 mg/dL Normal 0.70-1.30 [facility] Comment on above: Performed By: #### H STROPN, BMP #### [facility] [address] [place] [address] Dr. Annemarie Solorio EGFR-AF GHANAIAN >60 Normal >=60 [facility] Comment on above: Performed By: #### H STROPN, BMP #### [facility] [address] [address] [address] Annemarie Solorio EGFR-NON AF GHANAIAN >60 Normal >=60 [facility] Comment on above: Performed By: #### H STROPN, BMP #### [facility] [address] [address] [address] Annemarie Solorio Glucose [Mass/Vol] 108 mg/dL Critically high 74-106 [facility] Comment on above: Performed By: #### H STROPN, BMP #### [facility] [address] [address] [address] Annemarie Solorio Potassium [Moles/Vol] 4.0 mmol/L Normal 3.5-5.1 [facility] Comment on above: Performed By: #### H STROPN, BMP #### [facility] [address] [place] [address] Dr. Annemarie Solorio Sodium [Moles/Vol] 143 mmol/L Normal 136-145 [facility] Comment on above: Performed By: #### H STROPN, BMP #### [facility] [address] [address] [address] Annemarie Solorio Urea nitrogen [Mass/Vol] 18.0 mg/dL Normal 7.0-18.0 [facility] Comment on above: Performed By: #### H STROPN, BMP #### [facility] [address] [place] [address] Dr. Annemarie Solorio Urea nitrogen/Creatinine [Mass ratio] 18.4 mg/mg Normal [facility] Comment on above: Performed By: #### H STROPN, BMP #### [facility] [address] [place] [address] Dr. Annemarie Solorio TROPONIN, HIGH SENSITIVITYon 12-31-2022 HSTROP 6.5 pg/mL Normal 4.0-76.1 [facility] Comment on above: Result Comment: CUT- OFF POINTS HAVE BEEN ESTABLISHED BASED ON THE FOURTH UNIVERSAL DEFINITIONS OF MYOCARDIAL INFARCTION. THE UPPER REFERENCE LIMIT (URL) OF TROPONIN, DEFINED THE 99TH PERCENTILE OF cTnI DISTRIBUTION IN A REFERENCE POPULATION, HAS BEEN CONFIRMED THE DECISION THRESHOLD FOR [place] DIAGNOSIS. Performed By: #### H STRO, [facility] #### [facility] [address] [id number] Annemarie Solorio XR CHEST 1 Von [...] by: PING GREGORY Date: 2022-12-31 14:13 Normal [facility] Encounters Encounter Date Encounter Type Care Provider Facility Start: 12-31-2022 End: 12-31-[address] ARACELI JRAVIS Facility:[facility] Payers Date Payer Category Payer Unknown [id number] 1960 Self-pay [id number] Summary Purpose Family History No Family History Records Found Advance Directives No Advanced Directives Records Found Additional Source Comments (unrecognized sect ion and content) No Status Records Found INFORMATION SOURCE (unrecogn ized section and content) DATE CREATED AUTHOR 01/01/2023 [facility] FOR RECORDS PERTAINING TO PATIENTS WHO [...] BE BASED ON THE PRIMARY CLINICAL RECORDS. [employer] provides no warranty or guarantee of the accuracy or completeness of information in this document.
[2024-09-15] MEDS: LORAZEPAM 2 MG/ML VIAL 1 MG IM (03:30)
[2024-09-15 03:33] VITALS: BP 168/73; PULSE 77; O2SAT 98
[2024-09-15 04:03] VITALS: BP 127/50; PULSE 84; O2SAT 96
--- NOTE | 2024-09-15 04:08 | PC.NURSE ---
i gave this patient verbal and paper discharge orders and this patient voices yes to understanding these discharge orders. at time of discharge voices no concerns and this patient shows no signs of distress. this patient will remain in the room until his ride arrives, since he received medication early on his ER visit today
== END 2024-09-15 04:12 | disposition home or self-care (01) ==
PROVIDERS: Emergency Provider Emergency Medicine
DX: F41.9 Anxiety disorder, unspecified (principal); F17.200 Nicotine dependence, unspecified, uncomplicated; R07.9 Chest pain, unspecified
CPT/HCPCS: 71045; 93005; 96372; 99285; J2060

== ENCOUNTER 2025-06-03 14:02 | Emergency (ER) | payer OTHER, SELFPAY ==
[2025-06-03 14:03] VITALS: BP 134/81; PULSE 89; TEMP 37.3; O2SAT 98; BMI 37.1
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
[2025-06-03 14:09] VITALS: O2SAT 98
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
--- OUTSIDE RECORDS SUMMARY | 2025-06-03 15:39 | XMS_ITS | CCD ---
Author Organization [facility] Care Team Providers Care Mental Health Professional Name Role Phone MATHEUS, DR ARACELI Le Admitting Unavailabl e REINECK, DR ARACELI Le Attending Unavailabl e REQUEST, DR MINAYA LISTED Primary Care Unavaila ble MATHEUS, DR ARACLEI Le Consulting Unavailabl e RASTEPING MICHAEL Consulting Unavailable Results Test Name Value Interpretation Reference Range Facil ity CBC AUTO DIFFon 12-31-2022 BASO # 0.0 103/ul Normal 0.0-0.1 [facility] Comment on above: Performed By: #### C BC #### [facility] [address] [address] [address] Annemarie Solorio Basophils/100 WBC (Bld) 0.4 % Normal 0.2-2.0 [facility] Comment on above: Performed By: #### C BC #### [facility] [address] [address] [address] Annemarie Solorio EO # 0.1 103/ul Normal 0.0-0.7 [facility] Comment on above: Performed By: #### C BC #### [facility] [address] [address] [address] Annemarie Solorio Eosinophils/100 WBC (Bld) 1.0 % Normal 0.9-7.0 [facility] Comment on above: Performed By: #### C BC #### [facility] [address] [address] [address] Annemarie Solorio Erythrocyte distribution width (RBC) [Ratio] 12.2 % Normal 11.0-15.0 [facility] Comment on above: Performed By: #### C BC #### [facility] [address] [place] [address] Dr. Annemarie Solorio Hematocrit (Bld) [Volume fraction] 40.9 % Critically low 42.0-54.0 [facility] Comment on above: Performed By: #### C BC #### [facility] [address] [address] [address] Annemarie Solorio Hemoglobin (Bld) [Mass/Vol] 14.5 g/dL Normal 14.0-18.0 [facility] Comment on above: Performed By: #### C BC #### [facility] [address] [place] [address] Dr. Annemarie Solorio IG # 0.02 10e3/ul Normal 0.00-0.03 [facility] Comment on above: Performed By: #### C BC #### [facility] [address] [place] [address] Dr. Annemarie Solorio IG % 0.3 % Normal 0.0-0.5 [facility] Comment on above: Performed By: #### C BC #### [facility] [address] [place] [address] Dr. Annemarie Solorio LYMPH # 1.0 103/ul Critically low 1.2-3.8 [facility] Comment on above: Performed By: #### C BC #### [facility] [address] [place] [address] Dr. Annemarie Solorio Lymphocytes/100 WBC (Bld) 14.4 % Critically low 20.5-60.0 [facility] Comment on above: Performed By: #### C BC #### [facility] [address] [place] [address] Dr. Annemarie Solorio MANUAL DIFF REQ NO Normal [facility] Comment on above: Performed By: #### C BC #### [facility] [address] [place] [address] Dr. Annemarie Solorio MCH (RBC) [Entitic mass] 30.1 pg Normal 25.9-34.0 [facility] Comment on above: Performed By: #### C BC #### [facility] [address] [place] [address] Dr. Annemarie Solorio MCHC (RBC) [Mass/Vol] 35.5 g/dL Critically high 29.9-35.2 [facility] Comment on above: Performed By: #### C BC #### [facility] [address] [address] [address] Annemarie Solorio MCV (RBC) [Entitic vol] 84.9 fL Normal 80.0-94.0 [facility] Comment on above: Performed By: #### C BC #### [facility] [address] [address] [address] Annemarie Solorio MONO # 0.3 103/ul Normal 0.3-0.8 [facility] Comment on above: Performed By: #### C BC #### [facility] [address] [address] [address] Annemarie Solorio Monocytes/100 WBC (Bld) 4.8 % Normal 1.7-12.0 [facility] Comment on above: Performed By: #### C BC #### [facility] [address] [address] [address] Annemarie Solorio NEUT # 5.6 103/ul Normal 1.4-6.5 [facility] Comment on above: Performed By: #### C BC #### [facility] [address] [address] [address] Annemarie Solorio Neutrophils/100 WBC (Bld) 79.1 % Critically high 43.0-75.0 [facility] Comment on above: Performed By: #### C BC #### [facility] [address] [address] [address] Annemarie Solorio Platelet mean volume (Bld) [Entitic vol] 11.2 fL Normal 9.5-13.5 [facility] Comment on above: Performed By: #### C BC #### [facility] [address] [address] [address] Annemarie Solorio PLT 267 103/ul Normal 150-450 [facility] Comment on above: Performed By: #### C BC #### [facility] [address] [address] [address] Annemarie Solorio RBC 4.82 106/ul Normal 4.70-6.10 [facility] Comment on above: Performed By: #### C BC #### [facility] [address] [address] [address] Annemarie Solorio WBC 7.1 103/ul Normal 4.0-11.0 [facility] Comment on above: Performed By: #### C BC #### [facility] [address] [address] [address] Annemarie Solorio POINT OF CARE GLUCOSEon 12-16 Glucose [Mass/Vol] 123 mg/dL Critically high 74-106 T [facility] Comment on above: Performed By: #### P OCGLUC #### [facility] [address] [address] [address] Annemarie Solorio PROF CHEM 8 (BAS METB)on Anion gap [Moles/Vol] 15.7 mmol/L Normal [facility] Comment on above: Performed By: #### H STROPN, BMP #### [facility] [address] [place] [address] Dr. Annemarie Solorio Calcium [Mass/Vol] 9.2 mg/dL Normal 8.5-10.1 [facility] Comment on above: Performed By: #### H STROPN, BMP #### [facility] [address] [place] [address] Dr. Annemarie Solorio Chloride [Moles/Vol] 107 mmol/L Normal 98-107 [facility] Comment on above: Performed By: #### H STROPN, BMP #### [facility] [address] [place] [address] Dr. Annemarie Solorio CO2 [Moles/Vol] 24.3 mmol/L Normal 21.0-32.0 [facility] Comment on above: Performed By: #### H STROPN, BMP #### [facility] [address] [place] [address] Dr. Annemarie Solorio Creatinine [Mass/Vol] 0.98 mg/dL Normal 0.70-1.30 [facility] Comment on above: Performed By: #### H STROPN, BMP #### [facility] [address] [place] [address] Dr. Annemarie Solorio EGFR-AF GAMBIAN >60 Normal >=60 [facility] Comment on above: Performed By: #### H STROPN, BMP #### [facility] [address] [address] [address] Annemarie Solorio EGFR-NON AF GAMBIAN >60 Normal >=60 [facility] Comment on above: Performed By: #### H STROPN, BMP #### [facility] [address] [address] [address] Annemarie Solorio Glucose [Mass/Vol] 108 mg/dL Critically high 74-106 [facility] Comment on above: Performed By: #### H STROPN, BMP #### [facility] [address] [address] [address] Annemarie Solorio Potassium [Moles/Vol] 4.0 mmol/L Normal 3.5-5.1 [facility] Comment on above: Performed By: #### H STROPN, BMP #### [facility] [address] [place] [address] Dr. Annemarie Solorio Sodium [Moles/Vol] 143 mmol/L Normal 136-145 [facility] Comment on above: Performed By: #### H STROPN, BMP #### [facility] [address] [address] [address] Annemarie Solorio Urea nitrogen [Mass/Vol] 18.0 mg/dL Normal 7.0-18.0 [facility] Comment on above: Performed By: #### H STROPN, BMP #### [facility] [address] [place] [address] Dr. Annemarie Solorio Urea nitrogen/Creatinine [Mass ratio] 18.4 mg/mg Normal [facility] Comment on above: Performed By: #### H STROPN, BMP #### [facility] [address] [place] [address] Dr. Annemarie Solorio TROPONIN, HIGH SENSITIVITYon 12-31-2022 HSTROP 6.5 pg/mL Normal 4.0-76.1 [facility] Comment on above: Result Comment: CUT- OFF POINTS HAVE BEEN ESTABLISHED BASED ON THE FOURTH UNIVERSAL DEFINITIONS OF MYOCARDIAL INFARCTION. THE UPPER REFERENCE LIMIT (URL) OF TROPONIN, DEFINED THE 99TH PERCENTILE OF cTnI DISTRIBUTION IN A REFERENCE POPULATION, HAS BEEN CONFIRMED THE DECISION THRESHOLD FOR [place] DIAGNOSIS. Performed By: #### H STRO, [facility] #### [facility] [id number] Annemarie Solorio XR CHEST 1 Von [...] by: PING GREGORY Date: 2022-12-31 14:13 Normal [facility] Encounters Encounter Date Encounter Type Care Provider Facility Start: 12-31-2022 End: 12-31-[address] ARACELI JARVIS Facility:[facility] Payers Date Payer Category Payer Unknown [id number] 1960 Self-pay [id number] Summary Purpose Family History No Family History Records Found Advance Directives No Advanced Directives Records Found Additional Source Comments (unrecognized sect ion and content) No Status Records Found INFORMATION SOURCE (unrecogn ized section and content) DATE CREATED AUTHOR 01/01/[address] [facility] FOR RECORDS PERTAINING TO PATIENTS WHO [...] BE BASED ON THE PRIMARY CLINICAL RECORDS. [employer] provides no warranty or guarantee of the accuracy or completeness of information in this document.
== END 2025-06-03 15:10 | disposition home or self-care (01) ==
PROVIDERS: Emergency Provider Emergency Medicine
DX: T14.8XXA Other injury of unspecified body region, initial encounter (principal); V43.63XA Car passenger injured in collision with pick-up truck in traffic accident, initial encounter; F17.200 Nicotine dependence, unspecified, uncomplicated
CPT/HCPCS: 70450; 71045; 72125; 76376; 99285

== ENCOUNTER 2025-06-09 02:11 | Emergency (ER) | payer OTHER, SELFPAY ==
[2025-06-09 02:14] VITALS: BP 157/74; PULSE 59; TEMP 36.5; O2SAT 98; BMI 37.1
--- OUTSIDE RECORDS SUMMARY | 2025-06-09 02:23 | XMS_ITS | CCD ---
Author Organization [facility] Care Team Providers Care Manager Utilities Name Role Phone MATHEUS, DR ARACELI Le Admitting Unavailabl e REINECK, DR ARACELI Le Attending Unavailabl e REQUEST, DR MINAYA LISTED Primary Care Unavaila ble MATHEUS, DR ARACELI Le Consulting Unavailabl e RASTEPING MICHAEL Consulting Unavailable Results Test Name Value Interpretation Reference Range Facil ity CBC AUTO DIFFon 12-31-2022 BASO # 0.0 103/ul Normal 0.0-0.1 [facility] Comment on above: Performed By: #### C BC #### [facility] [address] [address] [address] Annemarie Solorio Basophils/100 WBC (Bld) 0.4 % Normal 0.2-2.0 [facility] Comment on above: Performed By: #### C BC #### [facility] [address] [address] [address] Annemarie Solorio EO # 0.1 103/ul Normal 0.0-0.7 [facility] Comment on above: Performed By: #### C BC #### [facility] [address] [address] [address] Annemarie Solorio Eosinophils/100 WBC (Bld) 1.0 % Normal 0.9-7.0 [facility] Comment on above: Performed By: #### C BC #### [facility] [address] [address] [address] Annemarie Solorio Erythrocyte distribution width (RBC) [Ratio] 12.2 % Normal 11.0-15.0 [facility] Comment on above: Performed By: #### C BC #### [facility] [address] [place] [address] Dr. Annemarie Solorio Hematocrit (Bld) [Volume fraction] 40.9 % Critically low 42.0-54.0 [facility] Comment on above: Performed By: #### C BC #### [facility] [address] [address] [address] Annemarie Solorio Hemoglobin (Bld) [Mass/Vol] 14.5 g/dL Normal 14.0-18.0 [facility] Comment on above: Performed By: #### C BC #### [facility] [address] [place] [address] Dr. Annemarie Solorio IG # 0.02 10e3/ul Normal 0.00-0.03 [facility] Comment on above: Performed By: #### C BC #### [facility] [address] [place] [address] Dr. Annemarie Solorio IG % 0.3 % Normal 0.0-0.5 [facility] Comment on above: Performed By: #### C BC #### [facility] [address] [place] [address] Dr. Anneamrie Solorio LYMPH # 1.0 103/ul Critically low 1.2-3.8 [facility] Comment on above: Performed By: #### C BC #### [facility] [address] [place] [address] Dr. Annemarie Solorio Lymphocytes/100 WBC (Bld) 14.4 % Critically low 20.5-60.0 [facility] Comment on above: Performed By: #### C BC #### [facility] [address] [place] [address] Dr. Annemarie Solorio MANUAL DIFF REQ NO Normal [facility] Comment on above: Performed By: #### C BC #### [facility] [address] [place] [address] Dr. Annemarie Solorio MCH (RBC) [Entitic mass] 30.1 pg Normal 25.9-34.0 [facility] Comment on above: Performed By: #### C BC #### [facility] [address] [place] [address] Dr. Annemarie Solorio MCHC (RBC) [Mass/Vol] 35.5 g/dL Critically high 29.9-35.2 [facility] Comment on above: Performed By: #### C BC #### [facility] [address] [address] [address] Annemarie Solorio MCV (RBC) [Entitic vol] 84.9 fL Normal 80.0-94.0 [facility] Comment on above: Performed By: #### C BC #### [facility] [address] [address] [address] Annemarie Solorio MONO # 0.3 103/ul Normal 0.3-0.8 [facility] Comment on above: Performed By: #### C BC #### [facility] [address] [address] [address] Annemarie Solorio Monocytes/100 WBC (Bld) 4.8 % Normal 1.7-12.0 [facility] Comment on above: Performed By: #### C BC #### [facility] [address] [address] [address] Annemarie Solorio NEUT # 5.6 103/ul Normal 1.4-6.5 [facility] Comment on above: Performed By: #### C BC #### [facility] [address] [address] [address] Annemarie Solorio Neutrophils/100 WBC (Bld) 79.1 % Critically high 43.0-75.0 [facility] Comment on above: Performed By: #### C BC #### [facility] [address] [address] [address] Annemarie Solorio Platelet mean volume (Bld) [Entitic vol] 11.2 fL Normal 9.5-13.5 [facility] Comment on above: Performed By: #### C BC #### [facility] [address] [address] [address] Annemarie Solorio PLT 267 103/ul Normal 150-450 [facility] Comment on above: Performed By: #### C BC #### [facility] [address] [address] [address] Annemarie Solorio RBC 4.82 106/ul Normal 4.70-6.10 [facility] Comment on above: Performed By: #### C BC #### [facility] [address] [address] [address] Annemarie Solorio WBC 7.1 103/ul Normal 4.0-11.0 [facility] Comment on above: Performed By: #### C BC #### [facility] [address] [address] [address] Annemarie Solorio POINT OF CARE GLUCOSEon 12-16 Glucose [Mass/Vol] 123 mg/dL Critically high 74-106 T [facility] Comment on above: Performed By: #### P OCGLUC #### [facility] [address] [address] [address] Annemarie Solorio PROF CHEM 8 (BAS METB)on Anion gap [Moles/Vol] 15.7 mmol/L Normal [facility] Comment on above: Performed By: #### H STROPN, BMP #### [facility] [address] [place] [address] Dr. Annemarie Solorio Calcium [Mass/Vol] 9.2 mg/dL Normal 8.5-10.1 [facility] Comment on above: Performed By: #### H STROPN, BMP #### [facility] [address] [place] [address] Dr. Annemarie Solorio Chloride [Moles/Vol] 107 mmol/L Normal 98-107 [facility] Comment on above: Performed By: #### H STROPN, BMP #### [facility] [address] [place] [address] Dr. Annemarie Solorio CO2 [Moles/Vol] 24.3 mmol/L Normal 21.0-32.0 [facility] Comment on above: Performed By: #### H STROPN, BMP #### [facility] [address] [place] [address] Dr. Annemarie Solorio Creatinine [Mass/Vol] 0.98 mg/dL Normal 0.70-1.30 [facility] Comment on above: Performed By: #### H STROPN, BMP #### [facility] [address] [place] [address] Dr. Annemarie Solorio EGFR-AF BAHAMIAN >60 Normal >=60 [facility] Comment on above: Performed By: #### H STROPN, BMP #### [facility] [address] [address] [address] Annemarie Solorio EGFR-NON AF BAHAMIAN >60 Normal >=60 [facility] Comment on above: Performed By: #### H STROPN, BMP #### [facility] [address] [address] [address] Annemarie Solorio Glucose [Mass/Vol] 108 mg/dL Critically high 74-106 [facility] Comment on above: Performed By: #### H STROPN, BMP #### [facility] [address] [address] [address] Annemarie Solorio Potassium [Moles/Vol] 4.0 mmol/L Normal 3.5-5.1 [facility] Comment on above: Performed By: #### H STROPN, BMP #### [facility] [address] [place] [address] Dr. Annemarie Solorio Sodium [Moles/Vol] 143 mmol/L Normal 136-145 [facility] Comment on above: Performed By: #### H STROPN, BMP #### [facility] [address] [address] [address] Annemarie Solorio Urea nitrogen [Mass/Vol] 18.0 mg/dL Normal 7.0-18.0 [facility] Comment on above: Performed By: #### H STROPN, BMP #### [facility] [address] [place] [address] Dr. Annemarie Solorio Urea nitrogen/Creatinine [Mass ratio] 18.4 mg/mg Normal [facility] Comment on above: Performed By: #### H STROPN, BMP #### [facility] [address] [place] [address] Dr. Annemarie Solorio TROPONIN, HIGH SENSITIVITYon 12-31-2022 HSTROP 6.5 pg/mL Normal 4.0-76.1 [facility] Comment on above: Result Comment: CUT- OFF POINTS HAVE BEEN ESTABLISHED BASED ON THE FOURTH UNIVERSAL DEFINITIONS OF MYOCARDIAL INFARCTION. THE UPPER REFERENCE LIMIT (URL) OF TROPONIN, DEFINED THE 99TH PERCENTILE OF cTnI DISTRIBUTION IN A REFERENCE POPULATION, HAS BEEN CONFIRMED THE DECISION THRESHOLD FOR [place] DIAGNOSIS. Performed By: #### H STRO, [facility] #### [facility] [id number] Annemarie Solorio XR CHEST 1 Von [...] by: PING GREGORY Date: 2022-12-31 14:13 Normal [facility] Encounters Encounter Date Encounter Type Care Provider Facility Start: 12-31-2022 End: 12-31-[address] ARACELI JARVIS Facility:[facility] Payers Date Payer Category Payer Unknown [id number] 1960 Self-pay [id number] Summary Purpose Family History No Family History Records Found Advance Directives No Advanced Directives Records Found Additional Source Comments (unrecognized sect ion and content) No Status Records Found INFORMATION SOURCE (unrecogn ized section and content) DATE CREATED AUTHOR 01/01/2023 [facility] FOR RECORDS PERTAINING TO PATIENTS WHO [...] BE BASED ON THE PRIMARY CLINICAL RECORDS. [employer] provides no warranty or guarantee of the accuracy or completeness of information in this document.
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
[2025-06-09] MEDS: METHYLPREDNISOLONE SOD SUCC PF 125 MG/2 ML VIAL IVP (02:40)
[2025-06-09 02:55] LABS: Hematocrit 37.0 % (42.0-54.0); Hemoglobin 13.0 g/dL (14.0-18.0); Immature Granulocytes Abs Auto 0.02 10^3/uL (0.00-0.03); Immature Granulocytes Pct Auto 0.2 % (0.0-0.5); Lymphocytes Absolute Auto 2.3 10^3/uL (1.2-3.8); Mean Corpuscular HGB Conc 35.1 g/dL (29.9-35.2); Mean Corpuscular Hemoglobin 31.2 pg (25.9-34.0); Mean Corpuscular Volume 88.7 fL (80.0-94.0); Platelet Count 244 10^3/uL (150-450); Red Blood Count 4.17 10^6/uL (4.70-6.10); White Blood Count 8.4 10^3/uL (4.0-11.0)
[2025-06-09 03:04] LABS: Anion Gap 10.7; Blood Urea Nitrogen 18.0 mg/dL (7.0-18.0); Calcium 9.0 mg/dL (8.5-10.1); Carbon Dioxide 26.1 mmol/L (21.0-32.0); Chloride 108 mmol/L (98-107); Estimated GFR (African America >60 (>=60 mL/min/1.73m^2); Estimated GFR (Non-African Ame >60 (>=60 mL/min/1.73m^2); Glucose 95 mg/dL (74-106); Potassium 3.8 mmol/L (3.5-5.1); Sodium 141 mmol/L (136-145)
[2025-06-09] MEDS: HYDROCODONE/ACET 5-325 MG TABLET 2 TAB PO (03:38)
== END 2025-06-09 04:02 | disposition home or self-care (01) ==
PROVIDERS: Emergency Provider Internal Medicine
DX: T14.8XXA Other injury of unspecified body region, initial encounter (principal); M25.50 Pain in unspecified joint; F17.200 Nicotine dependence, unspecified, uncomplicated; V49.9XXA Car occupant (driver) (passenger) injured in unspecified traffic accident, initial encounter
CPT/HCPCS: 36415; 80048; 85025; 86140; 96374; 99284; J2919

== ENCOUNTER 2025-07-16 06:38 | Emergency (ER) | payer SELFPAY ==
[2025-07-16 06:56] VITALS: BP 151/75; PULSE 81; TEMP 36.6; O2SAT 98; BMI 37.1
--- NOTE | 2025-07-16 07:05 | XR_ITS ---
The [address] [address] Patient Name: FLAVIO MURRAY MRN: [id number] date: 1995 Sex: M Assigned Patient Location: ER Current Patient Location: ED.MAIN Accession/Order Number: [id number] Exam Date: 07/16/2025 07:37 Report Date: 07/16/2025 08:31 At the request of: JAVIER CARBALLO Procedure: XR ribs RT min 3V w CXR1V PA CHEST WITH 6 VIEWS RIGHT RIBS: CLINICAL HISTORY: trauma, rib pains COMPARISON: None FINDINGS: Heart appears normal in size. Elevation of the right hemidiaphragm with right basilar atelectasis. No consolidation pneumothorax pleural effusion or free air. Additional views of the right ribs demonstrate no displaced rib fracture. XR/XR ribs RT min 3V w CXR1V IMPRESSION: RIGHT BASILAR ATELECTASIS. NO DISPLACED RIGHT-SIDED RIB FRACTURE. Impression dictated by: Jacob Villanueva Jr., DAristidesOAristides 07/16/2025 8:31 AM Dictation Location: [place] [address] Electronically authenticated by: [id number] Y Date: 07/16/2025 08:31
--- NOTE | 2025-07-16 07:05 | XR_ITS ---
[address] [address] Patient Name: FLAVIO MURRAY MRN: [id number] date: 1995 Sex: M Assigned Patient Location: ER Current Patient Location: ED.MAIN Accession/Order Number: [id number] Exam Date: 07/16/2025 07:37 Report Date: 07/16/2025 08:30 At the request of: JAVIER CARBALLO Procedure: XR elbow RT min 3V RIGHT ELBOW - 3 views CLINICAL HISTORY: fall, right elbow pain COMPARISON: None FINDINGS: No elbow joint effusion. No acute bony process. Joint spaces appear maintained. XR/XR elbow RT min 3V IMPRESSION: NO ACUTE BONY PROCESS. Impression dictated by: Annie Harris Jr.OAristides 07/16/2025 8:30 AM Dictation Location: [place] [address] Electronically authenticated by: [id number] Y Date: 07/16/2025 08:30
--- OUTSIDE RECORDS SUMMARY | 2025-07-16 07:33 | XMS_ITS | CCD ---
Author Organization [facility] Care Team Providers Care Voltage Regulator Assembler Name Role Phone MATHEUS, DR ARACELI Le Admitting Unavailabl e REINECK, DR ARACELI Le Attending Unavailabl e REQUEST, DR MINAYA LISTED Primary Care Unavaila ble MATHEUS, DR ARACELI Le Consulting Unavailabl e RASTEPING MICHAEL Consulting Unavailable Results Test NameValueInterpretationReference RangeFacilityCBC AUTO DIFFon 12-31-2022 BASO #0.0 103/ulNormal0.0-0.1The [facility] SystemComment on above:Performed By: #### CBC #### [facility] [address] [place] [address] Dr. Annemarie SolorioBasophils/100 WBC (Bld)0.4 %Normal0.2-2.0[facility] Comment on above:Performed By: #### CBC #### [facility] [address] [place] [address] [address] Annemarie Barraza #0.1 103/ulNormal0.0-0.7The [facility] SystemComment on above: Performed By: #### CBC #### [facility] [address] [address] [address] Annemarie Murryosinophils/100 WBC (Bld)1.0 %Normal0.9-7.0[facility] Comment on above:Performed By: #### CBC #### [facility] [address] [address] [address] Annemarie Murryrythrocyte distribution width (RBC) [Ratio]12.2 %Nythjr76.0-15.0 The [facility] SystemComment on above:Performed By: #### CBC #### [facility] [address] [place] [address] Dr. Yilan ChangHematocrit (Bld) [Volume fraction]40.9 %Critically low42.0-54.0 The [facility] SystemComment on above:Performed By: #### CBC #### [facility] [address] [place] [address] Dr. Annemarie SolorioHemoglobin (Bld) [Mass/Vol]14.5 g/cQOkciwh24.0-18.0The [facility] SystemComment on above:Performed By: #### CBC #### [facility] [address] [place] [address] Dr. Annemarie SolorioIG #0.02 10e3/ulNormal0.00-0.03The [facility] SystemComment on above:Performed By: #### CBC #### [facility] [address] [place] [address] Dr. Annemarie Morton %0.3 %Normal0.0-0.5The [facility] SystemComment on above: Performed By: #### CBC #### [facility] [address] [place] [address] Dr. Annemarie Holder #1.0 103/ulCritically low1.2-3.8The [facility] Comment on above:Performed By: #### CBC #### [facility] [address] [place] [address] Dr. Annemarie Juradomphocytes/100 WBC (Bld)14.4 %Critically low20.5-60.0The [facility] SystemComment on above:Performed By: #### CBC #### [facility] [address] [place] [address] Dr. Annemarie SolorioMANUAL DIFF REQNONormalThe [facility] SystemComment on above: Performed By: #### CBC #### [facility] [address] [place] [address] Dr. Annemarie Hines (RBC) [Entitic mass]30.1 qoCxjvew98.9-34.0The [facility] SystemComment on above:Performed By: #### CBC #### [facility] [address] [place] [address] Dr. Annemarei Ulloa (RBC) [Mass/Vol]35.5 g/dLCritically high29.9-35.2The [facility] SystemComment on above:Performed By: #### CBC #### [facility] [address] [address] [address] Annemarie UlloaV (RBC) [Entitic vol]84.9 eTXbkino70.0-94.0The [facility] SystemComment on above:Performed By: #### CBC #### [facility] [address] [place] [address] Dr. Annemarie King #0.3 103/ulNormal0.3-0.8The [facility] SystemComment on above:Performed By: #### CBC #### [facility] [address] [place] [address] Dr. Annemarie Auocytes/100 WBC (Bld)4.8 %Normal1.7-12.0[facility] Comment on above:Performed By: #### CBC #### [facility] [address] [place] [address] Dr. Annemarie Singh #5.6 103/ulNormal1.4-6.5The [facility] SystemComment on above:Performed By: #### CBC #### [facility] [address] [place] [address] Dr. Annemarie Mccallumutrophils/100 WBC (Bld)79.1 %Critically high43.0-75.0The [facility] SystemComment on above:Performed By: #### CBC #### [facility] [address] [place] [address] Dr. Annemarie Lyonlet mean volume (Bld) [Entitic vol]11.2 fLNormal9.5-13.5The [facility] SystemComment on above:Performed By: #### CBC #### [facility] [address] [place] [address] Dr. Annemarie SolorioPLT267 103/fxLkxwqa213-078Hvf [facility] SystemComment on above: Performed By: #### CBC #### [facility] [address] [address] [address] Annemarie SolorioRBC4.82 106/ulNormal4.70-6.10The [facility] SystemComment on above:Performed By: #### CBC #### [facility] [address] [place] [address] [address] Annemarie SolorioWBC7.1 103/ulNormal4.0-11.0The [facility] SystemComment on above: Performed By: #### CBC #### [facility] [address] [place] [address] Dr. Annemarie SolorioPOINT OF CARE GLUCOSEon 04-29-4445Pwokmtx [Mass/Vol]123 mg/dL Critically kmgu29-992Tnz [facility] SystemComment on above:Performed By: #### POCGLUC #### [facility] [address] [place] [address] Dr. Annemarie SolorioPROF CHEM 8 (BAS METB)on 16-04-7428Tvoyt gap [Moles/Vol]15.7 mmol/LNormalThe [facility] SystemComment on above:Performed By: #### HSTROPN, BMP #### [facility] [address] [address] [address] Annemarie SolorioCalcium [Mass/Vol]9.2 mg/dLNormal8.5-10.1[facility] Comment on above:Performed By: #### HSTROPN, BMP #### [facility] [address] [place] [address] Dr. Annemarie SolorioChloride [Moles/Vol]107 mmol/ULrkagd32-714DtvOhiohealth [facility] Comment on above:Performed By: #### HSTROPN, BMP #### [facility] [address] [place] [address] [address] Annemarie SolorioCO2 [Moles/Vol]24.3 mmol/TFwbidd71.0-32.0[facility] Comment on above:Performed By: #### HSTROPN, BMP #### [facility] [address] [place] [address] Dr. Annemarie SolorioCreatinine [Mass/Vol]0.98 mg/dLNormal0.70-1.30The [facility] SystemComment on above:Performed By: #### HSTROPFina, BMP #### [facility] [address] [place] [address] Dr. Annemarie MurryGFR-AF KYRGYZ>60Normal>=60The [facility] SystemComment on above:Performed By: #### HSTROPN, BMP #### [facility] [address] [place] [address] Dr. Annemarie MurryGFR-NON AF KYRGYZ>60Normal>=60The [facility] SystemComment on above:Performed By: #### HSTROPFina, BMP #### [facility] [address] [place] [address] Dr. Annemarie SolorioGlucose [Mass/Vol]108 mg/dLCritically uhou01-263Qru [facility] SystemComment on above:Performed By: #### HSTROPFina, BMP #### [facility] [address] [place] [address] Dr. Annemarie SolorioPotassium [Moles/Vol]4.0 mmol/LNormal3.5-5.1[facility] Comment on above:Performed By: #### HSTROPFina, BMP #### [facility] [address] [place] [address] Dr. Annemarie SolorioSodium [Moles/Vol]143 mmol/UOyuani382-842Lak [facility] Comment on above:Performed By: #### HSTROPN, BMP #### [facility] [address] [place] [address] Dr. Annemarie SolorioUrea nitrogen [Mass/Vol]18.0 mg/dLNormal7.0-18.0The [facility] SystemComment on above:Performed By: #### HSTROPN, BMP #### [facility] [address] [place] [address] Dr. Annemarie Gentile nitrogen/Creatinine [Mass ratio]18.4 mg/mgNormalThe [facility] SystemComment on above:Performed By: #### HSTROPN, BMP #### [facility] [address] [place], [place] [address] Dr. Annemarie Sullivan, HIGH SENSITIVITYon 49-94-3241QFOUIW6.5 pg/mLNormal 4.0-76.1The [facility] SystemComment on above:Result Comment: CUT-OFF POINTS HAVE BEEN ESTABLISHED BASED ON THE FOURTH UNIVERSAL DEFINITIONS OF MYOCARDIAL INFARCTION. THE UPPER REFERENCE LIMIT (URL) OF TROPONIN, DEFINED THE 99TH PERCENTILE OF cTnI DISTRIBUTION IN A REFERENCE POPULATION, HAS BEEN CONFIRMED THE DECISION THRESHOLD FOR CT DIAGNOSIS.Performed By: #### HSTROPN, BMP #### [facility] [address] [place], [place] [address] Dr. Annemarie SolorioXR CHEST 1 Von [id number] CHEST 1 VEXAM: XR CHEST 1 V HISTORY: CHEST PAIN, UNSPECIFIED COMPARISON: None. TECHNIQUE: Chest X-ray AP, 1 view FINDINGS: Support devices: None. Lungs/pleura: No consolidation, effusion, or pneumothorax. Heart and mediastinum: Normal contours. Bones: No acute abnormality identified. Impression: No radiographic evidence of acute cardiopulmonary process. Electronically authenticated by: PING GREGORY Date: 2022-12-31 14:13[facility] Encounters Encounter DateEncounter TypeCare ProviderFacilityStart: 12-31-2022 End: [id number] ARACELI JARVISFacility:H1 Payers DatePayer CategoryPayerPolicy [id number] Summary Purpose Family History No Family History Records Found Advance Directives No Advanced Directives Records Found Additional Source Comments (unrecognized sect ion and content) No Status Records Found INFORMATION SOURCE (unrecogn ized section and content) DATE CREATED AUTHOR 01/01/2023 [facility] FOR RECORDS PERTAINING TO PATIENTS WHO ARE [...] BE BASED ON THE PRIMARY CLINICAL RECORDS. [facility] provides no warranty or guarantee of the accuracy or completeness of information in this document.
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
[2025-07-16] MEDS: METHOCARBAMOL 500 MG TABLET PO (08:57)
== END 2025-07-16 09:05 | disposition home or self-care (01) ==
PROVIDERS: Emergency Provider Emergency Medicine
DX: S20.221A Contusion of right back wall of thorax, initial encounter (principal); S50.01XA Contusion of right elbow, initial encounter; V28.01XA Electric (assisted) bicycle driver injured in noncollision transport accident in nontraffic accident, initial encounter; Y93.55 Activity, bike riding
CPT/HCPCS: 71101; 73080; 99283